=== PATIENT | male | born 1965 | race Caucasian/White ===

== ENCOUNTER 2024-07-28 14:18 | Emergency (ER) | payer OTHER, SELFPAY ==
[2024-07-28 14:19] VITALS: BP 145/92
[2024-07-28 14:42] LABS: % Basophils 0.4 % (0-2); % Eosinophils 1.5 % (0-6); % Immature Granulocytes 0.6 % (0-0.5); % Monocytes 6.4 % (1.7-9.3); % Neutrophils 73.1 % (42.2-75.2); Absolute Eosinophils 0.1 10^3/uL (0-0.7); Absolute Immature Granulocytes 0.1 10^3/uL (0-0.05); Absolute Lymphocytes 1.5 10^3/uL (1.2-3.4); Absolute Monocytes 0.5 10^3/uL (0.1-0.6); Hematocrit 43.1 % (39.0-52.0); Hemoglobin 15.2 g/dL (13.0-18.0); Mean Corp Hgb Conc. 35.3 g/dL (33.0-37.0); Mean Corpuscular Hgb 31.3 pg (27.0-31.0); Mean Corpuscular Volume 88.7 fL (80.0-94.0); Mean Platelet Volume 9.6 fL (7.4-10.4); Nucleated Red Blood Cells % 0 % (-); Platelet Count 212 10^3/uL (130-400); Red Blood Cell Count 4.86 10^6/uL (4.70-6.10); Red Cell Dist. Width 11.8 % (11.5-14.5); White Blood Cell Count 8.2 10^3/uL (4.8-10.8)
[2024-07-28 14:56] LABS: ALT (SGPT) 29 U/L (0-50); AST (SGOT) 26 U/L (17-59); Albumin 4.5 g/dl (3.5-5.0); Alkaline Phosphatase 48 U/L (38-126); Blood Urea Nitrogen 23 mg/dl (9-20); Calcium 9.1 mg/dl (8.4-10.2); Carbon Dioxide 24 mmol/L (22-30); Chloride 104 mmol/L (98-107); Glucose 189 mg/dl (70-99); Potassium 4.4 mmol/L (3.5-5.1); Sodium 138 mmol/L (135-145); Total Bilirubin 0.9 mg/dl (0.2-1.3); Total Protein 6.9 g/dl (6.3-8.2); eGFR > 60.00
--- NOTE | 2024-07-28 17:09 | ED.GENMED ---
History of Present Illness
General
Chief Complaint: Abdominal Symptoms
Source: patient
Exam Limitations: none
Time Seen by Provider: 07/28/24 16:15
Nursing documentation reviewed up to this point in time: agreed with
History of Present Illness
History of Present Illness:
59-year-old type II diabetic presents with about 5 days of diarrhea loose watery no blood some abdominal cramping no nausea vomiting no fever chills no foreign travel no raw or undercooked foods, feels weak, has lost some weight, no prior episodes
no sick contacts
Past History
Past History
ED Past Medical History: NIDDM
Social History
Tobacco: Non-smoker
Alcohol: None
Drug: None
Personal:
Living: with family
Employment: Employed
Review of Systems
Review of Systems
All Other Systems: Not applicable
Constitutional: Reports weight loss and fatigue
EENT: Reports no symptoms
Respiratory: Reports no symptoms
Cardiac: Reports no symptoms
ABD/GI: Reports diarrhea; Denies abdominal pain, nausea, vomiting, constipated, bloody stools, black stools or anorexia
: Reports no symptoms
Musculoskeletal: Reports no symptoms
Skin: Reports no symptoms
Neurological: Reports weakness
Endocrine: Reports no symptoms
Phy Exam
Physical Exam
Physical Exam:
Physical Exam
General: Nontoxic 59
Neck: Dry lips
Heart: s1/s2 regular rate and rhythm, no murmur. equal radial pulses.
Lungs: no acute respiratory distress. clear bilaterally
Abdomen: Soft not tender
Neuro: alert and oriented. no focal neurological deficits
Skin: no rash
Psychiatric: well kept. interactive and cooperative
Extremities: no edema.
Course
Orders/Labs/Results
Orders:
Orders
07/28/24 14:33
Complete Blood Count/With Diff Urgent
Comprehensive Metabolic Panel Urgent
07/28/24 17:03
0.9% Sodium Chloride 1000 ml [Nss] 1,000 ml IV BOLUS
07/28/24 17:04
Norovirus by PCR Urgent
BEATRIZ Source: Feces/Stool
Specimen Description:
STOOL [C difficile Antigen & Toxins] Urgent
BEATRIZ Source: Feces/Stool
Specimen Description:
Stool Culture Urgent
BEATRIZ Source: Feces/Stool
Specimen Description:
Abnormal Lab Results
07/28/24
14:33
MCH 31.3 H pg
(27.0-31.0)
Abs Immat Gran (auto) 0.1 H 10^3/uL
(0-0.05)
Immature Gran % 0.6 H %
(0-0.5)
Lymphocytes % 18.0 L %
(20.5-51.1)
BUN 23 H mg/dl
(9-20)
Glucose 189 H mg/dl
(70-99)
07/28/24 14:33
07/28/24 14:33
Vital Signs
Initial and Last Documented VS:
Initial Vital Signs
Temp Pulse Resp BP Pulse Ox
99.2 F 101 16 145/92 98
07/28/24 14:19 07/28/24 14:19 07/28/24 14:19 07/28/24 14:19 07/28/24 14:19
Last Documented Vital Signs
Temp Pulse Resp BP Pulse Ox
99.2 F 76 16 116/73 98
07/28/24 14:19 07/28/24 18:00 07/28/24 18:00 07/28/24 18:00 07/28/24 18:00
MDM/Problems Addressed
Differential Diagnosis Includes:
Diarrheal illness, viral, doubt bacterial proceed
MDM/Problems Addressed:
Dehydration from diarrheal illness
Chronic conditions affecting care: DM
Acute Exacerbation and/or Progression of Chronic Illness: DM
*Pulse Oximetry
Patient hypoxic: no
*Critical Care Note
Total Time (30-74mins, 75-104mins- exclusive of procedures): Not Applicable
Update Note
Update Note:
Update labs are noted patient feeling better unable to provide stool specimen at this point I think he can take some Imodium as an outpatient as needed
ED Attending Note
-
Portions of this chart may have been created with voice recognition software.� Occasional wrong word or��sound alike� substitutions may have occurred due to the inherent limitations of voice recognition software.
Discharge Plan
Departure
Patient Disposition: Home (Routine Discharge)
Date of Disposition: 07/28/24
Time of Disposition: 19:01
Patient with high blood pressure during this ER visit?: No
Condition: Good
Discharge Problem:
Diarrhea
Instructions: Diarrhea in teens and adults, [place] Diet
Prescriptions:
New
loperamide [Imodium A-D] 2 mg capsule
2 mg PO Q6H PRN (Reason: loose stool) Qty: 20 0RF
No Action
amoxicillin 500 mg capsule
1,000 mg PO Q8H 5 Days Qty: 30 0RF
Referrals:
Macrina Cho CRNP [Family Provider] -
Interventions
Interventions:
*Risk Screen - Suicide Last Done: 07/28/24 14:19
*General Assessment Last Done: 07/28/24 14:19
*Neglect/Abuse Screening Last Done: 07/28/24 14:19
ED- Fall Risk Assessment Last Done: 07/28/24 17:24
GS-Zrwffj-Cgyqwnfzue Assessment Last Done: 07/28/24 17:24
Discharge Date and Time
Print Language: THAI
[2024-07-28] MEDS: NSS 1000 IV (17:17)
[2024-07-28 17:23] VITALS: BP 112/82; BMI 23.8
[2024-07-28 18:00] VITALS: BP 116/73
[2024-07-28 19:45] VITALS: BP 118/76
== END 2024-07-28 19:45 | disposition home or self-care (01) ==
LOC: EMR 14:18
PROVIDERS: EMERGENCY PHYSICIAN Emergency Medicine; FAMILY PHYSICIAN Nurse Practitioner Family
DX: R19.7 Diarrhea, unspecified (principal); E11.9 Type 2 diabetes mellitus without complications; E86.0 Dehydration
CPT/HCPCS: 99283; 80053; 85025